=== PATIENT | male | born 2000 | race Hispanic/Latino ===

== ENCOUNTER 2024-05-12 19:37 | Emergency (ER) | payer BC ==
[~2024-05-12] VITALS: Ht 167.6 cm; Wt 74.8 kg
[2024-05-12 20:00] VITALS: PULSE 81; RESP 18; TEMP 98.2; O2SAT 98
[2024-05-12] MEDS: LIDOCAINE HCL 1% LOCAL INJ 20 ML VIAL INJ ONE (20:48)
[2024-05-12] MEDS: CEPHALEXIN MONOHYDRATE 250 MG CAP PO ONE (20:48)
[2024-05-12] MEDS ORDERED: TETANUS/DIPHTHERIA TOX ADULT 0.5 ML SYR ONE (21:19)
[2024-05-12] MEDS ORDERED: CEPHALEXIN500 MG PO (21:37)
[2024-05-12] MEDS: TETANUS/DIPHTHERIA TOX ADULT 0.5 ML SYR IM ONE (21:38)
== END 2024-05-12 22:25 | disposition home or self-care (01) ==
LOC: FSED 19:55
DX: S61.411A Laceration without foreign body of right hand, initial encounter (principal); W26.8XXA Contact with other sharp object(s), not elsewhere classified, initial encounter; Y93.89 Activity, other specified
CPT/HCPCS: 12002; 73130; 90471; 90714; 99283; J2001

== ENCOUNTER 2024-05-19 20:05 | Emergency (ER) | payer BC ==
[~2024-05-19] VITALS: Ht 167.6 cm; Wt 74.8 kg
[~2024-05-19 20:05] MED LIST: CEPHALEXIN500 MG PO
[2024-05-19 20:55] VITALS: PULSE 86; RESP 18; TEMP 99
[2024-05-19 21:23] VITALS: BP 143/77; PULSE 86; RESP 18; TEMP 99; O2SAT 99
== END 2024-05-19 21:23 | disposition home or self-care (01) ==
LOC: FSED 20:56
DX: Z48.02 Encounter for removal of sutures (principal)
CPT/HCPCS: 99282; S0630

== ENCOUNTER 2024-09-10 19:51 | Emergency (ER) | payer SELFPAY ==
[~2024-09-10] VITALS: Ht 167.6 cm; Wt 81.6 kg
[2024-09-10 19:52] VITALS: PULSE 105; RESP 18; TEMP 103.1
[2024-09-10] MEDS ORDERED: TAMIFLU75 MG PO (20:27)
[2024-09-10] MEDS: ACETAMINOPHEN 325 MG TAB PO ONE (20:30)
[2024-09-10 20:50] VITALS: BP 118/62; PULSE 96; RESP 18; TEMP 100.5; O2SAT 97
== END 2024-09-10 20:52 | disposition home or self-care (01) ==
LOC: FSED 20:00
DX: R50.9 Fever, unspecified (principal); J10.1 Influenza due to other identified influenza virus with other respiratory manifestations; Z11.52 Encounter for screening for COVID-19
CPT/HCPCS: 0223U; 83518 ×2; 87400; 99283